=== PATIENT | male | born 1985 | race Caucasian/White ===

== ENCOUNTER 2021-03-13 14:26 | Emergency (ER) | payer SELFPAY ==
[2021-03-13 14:31] VITALS: BP 141/94; PULSE 96; TEMP 98; BMI 28.8
== END 2021-03-13 16:19 | disposition home or self-care (01) ==
LOC: JERFT 14:26
DX: S93.492A Sprain of other ligament of left ankle, initial encounter (principal); X50.0XXA Overexertion from strenuous movement or load, initial encounter
CPT/HCPCS: 73610-TC-LT-FY; 73630-TC-LT; 99283-25